=== PATIENT | male | born 1985 | race Caucasian/White ===

== ENCOUNTER → 2019-07-29 07:48 | Outpatient (BNVA) | payer OTHER, SELFPAY | PROVIDERS: Family Provider Internal Medicine; PCP Internal Medicine; Visit Provider Specialist | DX: G40.309 Generalized idiopathic epilepsy and epileptic syndromes, not intractable, without status epilepticus (principal) | CPT/HCPCS: 99212; 99213 ==

== ENCOUNTER → 2020-07-27 08:22 | Outpatient (BNVA) | payer OTHER, SELFPAY | PROVIDERS: Family Provider Internal Medicine; PCP Internal Medicine; Visit Provider Specialist | DX: G40.309 Generalized idiopathic epilepsy and epileptic syndromes, not intractable, without status epilepticus (principal); Z87.891 Personal history of nicotine dependence | CPT/HCPCS: 99212; 99213 ==

== ENCOUNTER → 2020-07-31 13:16 | Outpatient (BNVA) | payer OTHER, SELFPAY | PROVIDERS: Family Provider Internal Medicine; PCP Internal Medicine; Visit Provider Nurse Practitioner Family | DX: Z20.822 Contact with and (suspected) exposure to COVID-19 (principal) | CPT/HCPCS: 87635 ==

== ENCOUNTER → 2020-10-20 10:28 | Outpatient (BNVA) | payer OTHER, SELFPAY | PROVIDERS: Family Provider Internal Medicine; PCP Internal Medicine; Visit Provider Nurse Practitioner Family | DX: Z20.822 Contact with and (suspected) exposure to COVID-19 (principal) | CPT/HCPCS: 87635 ==

== ENCOUNTER → 2021-03-05 09:23 | Outpatient (BNVA) | payer OTHER, SELFPAY | PROVIDERS: Family Provider Internal Medicine; PCP Internal Medicine; Visit Provider Nurse Practitioner Family | DX: Z20.822 Contact with and (suspected) exposure to COVID-19 (principal) | CPT/HCPCS: 87635 ==

== ENCOUNTER → 2021-07-27 08:15 | Outpatient (BNVA) | payer OTHER, SELFPAY | PROVIDERS: Family Provider Internal Medicine; PCP Internal Medicine; Visit Provider Specialist | DX: G40.309 Generalized idiopathic epilepsy and epileptic syndromes, not intractable, without status epilepticus (principal) | CPT/HCPCS: 99213 ==

== ENCOUNTER → 2021-08-02 10:46 | Outpatient (BNVA) | payer OTHER, SELFPAY | PROVIDERS: Family Provider Internal Medicine; PCP Internal Medicine; Visit Provider Nurse Practitioner Family | DX: Z20.822 Contact with and (suspected) exposure to COVID-19 (principal) | CPT/HCPCS: 87635 ==

== ENCOUNTER → 2022-04-04 11:04 | Outpatient (BNVA) | payer OTHER, SELFPAY | PROVIDERS: Family Provider Internal Medicine; PCP Internal Medicine; Visit Provider Nurse Practitioner | DX: R50.9 Fever, unspecified (principal); Z20.822 Contact with and (suspected) exposure to COVID-19 | CPT/HCPCS: 87400; 87426 ==

== ENCOUNTER → 2023-10-25 10:34 | Outpatient (BNVA) | payer OTHER, SELFPAY | PROVIDERS: Family Provider Internal Medicine; PCP Emergency Medicine Emergency Medical Services; Visit Provider Specialist | DX: G40.309 Generalized idiopathic epilepsy and epileptic syndromes, not intractable, without status epilepticus (principal) | CPT/HCPCS: 99213 ==

== ENCOUNTER → 2024-10-23 09:35 | Outpatient (BNVA) | payer OTHER, SELFPAY | PROVIDERS: Family Provider Internal Medicine; PCP Emergency Medicine Emergency Medical Services; Visit Provider Specialist | DX: G40.309 Generalized idiopathic epilepsy and epileptic syndromes, not intractable, without status epilepticus (principal); Z87.891 Personal history of nicotine dependence | CPT/HCPCS: 99213 ==

== ENCOUNTER 2024-12-30 09:38 | Outpatient (CLI) | payer OTHER, SELFPAY ==
[2024-12-30 11:10] LABS: Sperm Immotility 40 % (50-60); Sperm Non-Progressive Motility 5 % (5-10); Sperm Progressive Motility 55 % (31-34); Viscosity Semen Normal; Volume Semen 5.0 mL (2-5); White Blood Count Semen 0-4 /hpf
[2024-12-30 12:37] LABS: Pathology Referral Yes; Sperm Count 111.0000 mill/mL (40-160)
== END 2024-12-30 09:39 | disposition home or self-care (01) ==
PROVIDERS: PCP Family Medicine; Visit Provider Specialist
DX: Z31.41 Encounter for fertility testing (principal)
CPT/HCPCS: 80503; 89320

== ENCOUNTER 2025-01-10 14:59 | Outpatient (CLI) | payer OTHER, SELFPAY ==
[2025-01-10 16:12] LABS: Hepatitis B Surface Antigen Non-Reactive (Nonreactive)
== END 2025-01-10 15:00 | disposition home or self-care (01) ==
LOC: LAB 15:03
PROVIDERS: PCP Family Medicine
DX: Z11.3 Encounter for screening for infections with a predominantly sexual mode of transmission (principal)
CPT/HCPCS: 36415; 86803; 87340; 87389